=== PATIENT | female | born 1960 ===

== ENCOUNTER 2017-07-13 08:04 | Outpatient (CLI) | payer OTHER ==
--- NOTE | 2017-07-13 11:06 | MMO ---
BILATERAL MAMMOGRAMS: DATE: 07/13/17 HISTORY: Screening mammography. COMPARISON: None. Baseline study. FINDINGS: Scattered fibroglandular densities and benign-appearing calcifications are present. Focal asymmetric density within the central aspect of the left breast on the CC view may represent the asymmetry at th e superior aspect on the MLO view. It warrants further evaluation. Asymmetry deep within the central aspect of the right breast on the MLO view is likely lateral on the CC view without underlying mass apparent. The study was evaluated with the assistance of computer-aided detection. IMPRESSION: Focal asymmetric density left breast warrants further evaluation. BIRADS 0: Incomplete: Need Additional Imaging Evaluation and/or Prior Mammograms for Comparison Patient will be recalled for additional mammographic views. Sonogram should also be scheduled in case it is needed. The facility will notify patient of need for additional imaging services. POS: [facility]
== END 2017-07-13 08:05 | disposition home or self-care (01) ==
LOC: SCSMAMMO 08:04
PROVIDERS: ATTEND Family Medicine
DX: Z12.31 Encounter for screening mammogram for malignant neoplasm of breast (principal); R92.8 Other abnormal and inconclusive findings on diagnostic imaging of breast
CPT/HCPCS: 77067

== ENCOUNTER 2017-08-16 08:21 | Outpatient (CLI) | payer OTHER | END 2017-08-16 08:22 | disposition home or self-care (01) | LOC: BICMAMMO 08:21 | PROVIDERS: ATTEND Family Medicine | DX: N64.89 Other specified disorders of breast (principal) | CPT/HCPCS: G0279 ==

== ENCOUNTER 2018-02-16 08:14 | Outpatient (CLI) | payer OTHER | END 2018-02-16 08:15 | disposition home or self-care (01) | LOC: BICMAMMO 08:14 | PROVIDERS: ATTEND Family Medicine | DX: N64.89 Other specified disorders of breast (principal) | CPT/HCPCS: G0279 ==